=== PATIENT | female | born 1970 | race Caucasian/White ===

== ENCOUNTER 2024-03-09 06:34 | Day surgery (SDC) | payer BC ==
[2024-03-09] MEDS ORDERED: fentaNYL 100 MCG/2 ML SDV ONE (07:09)
[2024-03-09] MEDS ORDERED: Propofol 200 MG/20 ML SDV ONE ×3 (07:09→08:08)
[2024-03-09] MEDS: Lactated Ringers 1,000 ML IV SCH (07:20)
== END 2024-03-09 09:24 | disposition home or self-care (01) ==
LOC: JP.SDS 06:34
PROVIDERS: ATTEND Surgery
DX: Z12.11 Encounter for screening for malignant neoplasm of colon (principal); I10 Essential (primary) hypertension; K21.9 Gastro-esophageal reflux disease without esophagitis; E78.5 Hyperlipidemia, unspecified
CPT/HCPCS: 00811-QZ; J2704; J3010; J7120